=== PATIENT | female | born 1990 | race Caucasian/White ===

== ENCOUNTER 2018-10-12 11:10 | Emergency (ER) | payer OTHER ==
[2018-10-12 11:36] VITALS: BP 118/70
[2018-10-12] MEDS ORDERED: Ibuprofen TAB* 400 MG PO ONE (11:55)
--- NOTE | 2018-10-12 12:00 | UC ---
Hand/Wrist HPI - HPI Summary HPI Summary: Knocking on door really hard Tuesday. Since then has swelling, bruising and pain in right hand that can shoot pain into wrist when picking things up. - History Of Current Complaint Chief Complaint: UCUpperExtremity Stated Complaint: RT HAND INJURY Time Seen by Provider: 10/12/18 11:54 Hx Obtained From: Patient Hx Last Menstrual Period: 10/21/12 Onset/Duration: Sudden Onset, Lasting Days Severity Initially: Moderate Severity Currently: Moderate Pain Intensity: 5 Character Of Pain: Dull, Stiffness Aggravating Factor(s): Movement Alleviating Factor(s): Ice Associated Signs And Symptoms: Positive: Swelling, Bruising - Allergies/Home Medications Allergies/Adverse Reactions: Allergies Allergy/AdvReac Type Severity Reaction Status Date / Time No Known Allergies Allergy Verified 10/12/18 11:30 Home Medications: Home Medications ARIPiprazole TAB* [Abilify TAB*] 5 mg PO BID 10/12/18 [History Confirmed ] Acetylcysteine [Nac] 1,200 mg PO BID 10/12/18 [History Confirmed 10/12/18] BuPROPion XL* [Bupropion XL*] 300 mg PO DAILY 10/12/18 [History Confirmed ] Cholecalciferol (Vitamin D3) [D 5000] 5,000 unit PO DAILY 10/12/18 [History Confirmed 10/12/18] Cyanocobalamin TAB* [Vitamin B12 TAB*] 5,000 mcg PO DAILY 10/12/18 [History Confirmed 10/12/18] Multivitamins/Minerals TAB* [Theragran/minerals TAB*] 1 tab PO DAILY 10/12/18 [ History Confirmed 10/12/18] PMH/Surg Hx/FS Hx/Imm Hx Previously Healthy: Yes - Surgical History Surgical History: Yes Surgery Procedure, Year, and Place: wisdom teeth. essure coils - Family History Known Family History: Positive: Hypertension - Social History Alcohol Use: Rare Substance Use Type: None Smoking Status (MU): Heavy Every Day Tobacco Smoker Type: Cigarettes Amount Used/How Often: 1/2 pack daily - Immunization History Most Recent Influenza Vaccination: not this season Review of Systems All Other Systems Reviewed And Are Negative: Yes Skin: Positive: Bruising Musculoskeletal: Positive: Arthralgia, Decreased ROM, Edema Is Patient Immunocompromised?: No Physical Exam Triage Information Reviewed: Yes Appearance: Well-Appearing, Well-Nourished, Pain Distress Vital Signs: Initial Vital Signs Temp 98.5 F 10/12/18 11:30 Pulse 71 10/12/18 11:30 Resp 17 10/12/18 11:30 BP 118/70 10/12/18 11:30 Pulse Ox 100 10/12/18 11:30 Vital Signs Reviewed: Yes Eye Exam: Normal ENT Exam: Normal Dental Exam: Normal Neck exam: Normal Respiratory Exam: Normal Cardiovascular Exam: Normal Abdominal Exam: Normal Musculoskeletal: Positive: Strength Limited @ - hand to epic cadence specialists with 5th finger, ROM Limited @ - in 5th finger, Edema @ - mild edema on the side of the 5th metacarpal Neurological Exam: Normal Psychological Exam: Normal Skin Exam: Normal Hand/Wrist Course/Dx - Course Course Of Treatment: hx obtained, exam performed ,meds reviewed, xray obtained, - Differential Dx/Diagnosis Differential Diagnosis/HQI/PQRI: Contusion, Fracture Provider Diagnosis: Contusion, hand Discharge - Sign-Out/Discharge Documenting (check all that apply): Patient Departure All imaging exams completed and their final reports reviewed: Yes - Discharge Plan Condition: Stable Disposition: HOME Patient Education Materials: Contusion in Adults (ED) Referrals: Dyana Marin MD [Primary Care Provider] - Additional Instructions: 1. use the serg wrap for support, warm water soaks daily to promote healing 2. follow up if not improving in a week - Billing Disposition and Condition Condition: STABLE Disposition: Home
== END 2018-10-12 12:45 | disposition home or self-care (01) ==
LOC: UCCORT 11:10
DX: S60.221A Contusion of right hand, initial encounter (principal); W22.09XA Striking against other stationary object, initial encounter; Y93.89 Activity, other specified; Y92.9 Unspecified place or not applicable; F17.210 Nicotine dependence, cigarettes, uncomplicated
CPT/HCPCS: 99212; A9270-GY; G0463